=== PATIENT | female | born 1990 | race African-American/Black ===

== ENCOUNTER 2016-04-26 12:39 | Emergency (ER) | payer OTHER ==
[2016-04-26 12:56] VITALS: BP 136/68
[2016-04-26] MEDS ORDERED: IBUPROFEN 600 MG TABLET PO ONE (13:08)
[2016-04-26] MEDS ORDERED: IBUPROFEN 600 MG TABLET ONE (13:13)
--- NOTE | 2016-04-26 13:14 | ERNOTE ---
Medical Problem HPI - Narrative Date of Service: 04/26/16 - General Chief Complaint: Flu Symptoms Time Seen by Provider: 04/26/16 13:07 Source: patient Exam Limitations: no limitations - Immun/Allergies/Home Medications Immunizations: IMMUNIZATION HX Immunizations Up to Date Yes History of Influenza Vaccine Yes Hx Pneumococcal Vaccination No Allergies/Adverse Reactions: Allergies No Known Allergies Allergy (Verified 04/26/16 12:57) Home Medications: HOME MEDICATIONS Albuterol Sulfate 2.5 mg IH Q6H #50 vial.neb 04/26/16 [Last Taken Unknown] Risperidone [Risperdal] 4 mg PO HS 04/26/16 [Last Taken Unknown] Sulfamethoxazole/Trimethoprim [Bactrim Ds] 1 tab PO BID #14 tab 04/26/16 [Last Taken Unknown] predniSONE [Prednisone] 2 tab PO DAILY #10 tab 04/26/16 [Last Taken Unknown] - History of Present History Narrative: 25 yo, F, reported to ED with reported flu-like symptoms. States started with mild cough and nasal drainage 2 days ago, but yesterday developed fever, body aches, chills. She works at the [employer] and has had exposure to Influenza. She did receive her flu shot this season. She has also noted some urinary frequency over the past 2 days as well. Date (Duration): 04/24/16 Timing: getting worse Modifying Factors - (Improves): Present: rest Modifying Factors - (Worsens): Present: other - none Review of Systems - Review of Systems Constitutional: Present: fever, chills, fatigue, malaise, other - body aches ENT: Present: nasal drainage. Absent: ear pain, sore throat Respiratory: Present: shortness of breath - with coughing, cough - dry barky. Absent: wheezing Cardiology: Absent: chest pain, palpitations, syncope Gastrointestinal/Abdominal: Present: nausea. Absent: vomiting, diarrhea, constipation, abdominal pain Genitourinary: Present: frequency. Absent: dysuria, hematuria Musculoskeletal: Present: back pain - mid back Skin: Absent: rash - Patient's Past Medical History Patient History - Medical: Bipolar Patient History - Cardiac/Respiratory: Asthma Patient History - Cancer: No Hx of Cancer Patient History - Surgical Procedures: , Tubal Ligation, Other - Social History Living Situations: home Smoking Status: Current every day smoker Have you smoked in the past 12 months: Yes Alcohol Use: occasionally Drug Use: none Physical Exam - Physical Exam General Appearance: Present: wd/wn, alert, no apparent distress Eye Exam: Sclera injection: bilateral - absent, Photophobia: bilateral - absent Ears, Nose, Throat: Present: pharyngeal erythema - mild, other - mild hyperemia and inflamation of nasal passages Neck: Present: normal inspection, full range of motion Respiratory: Present: no respiratory distress, no accessory muscle use, wheezing - moderate scattered wheezing. Absent: rales, rhonchi Cardiovascular/Chest: Present: regular rate, rhythm, no murmur Gastrointestinal/Abdominal: Present: normal bowel sounds, nontender, soft Back Exam: Present: no CVA tenderness Skin Exam: Present: normal color, warm/dry ED Progress - Date and Time Seen: Date and Time: 04/26/16 15:00 Reports feeling improved after Ibuprofen and Albuterol treatment. Mild scattered wheezing post treatment. No rales, no rhonchi. Will start tx for UTI and have her remain off work for through Saturday, due to flu-like symptoms. - Results and Orders Patient's Lab Results:: I have reviewed the patient's lab results. - Vital Signs Patient's Vital Signs:: I have reviewed the patient's vital signs. Vital Signs: Vital Signs 04/26/16 12:52 Temperature 38.7 C H Pulse Rate 98 Respiratory 18 Rate Blood Pressure 136/68 O2 Sat by Pulse 97 Oximetry - Progress/Reassessment Chief Complaint: Flu Symptoms Departure - Departure Clinical Impression: Viral syndrome Asthma with acute exacerbation Qualifiers: Asthma severity: mild intermittent Qualified Code(s): J45.21 - Mild intermittent asthma with (acute) exacerbation UTI (urinary tract infection) Qualifiers: Urinary tract infection type: acute cystitis Hematuria presence: without hematuria Qualified Code(s): N30.00 - Acute cystitis without hematuria Disposition: Home self-care Condition: Fair Instructions: Urinary Tract Infection, Adult, [id number], Asthma, Adult, Easy -to-Read Additional Instructions: Keep head of bed elevated to help with cough and congestion Start antibiotic (Bactrim) and Prednisone today May use Tylenol or Motrin, as directed for fever and body aches Return to ER if you develop any difficulty breathing, if symptoms worsen or you are vomiting and unable to tolerate oral fluids or antibiotics Schedule follow up appointment with your doctor for re-evaluation. Referrals: Cas Espinosa MD [Primary Care Provider] - Prescriptions: Albuterol Sulfate 2.5 mg IH Q6H #50 vial.neb Sulfamethoxazole/Trimethoprim [Bactrim Ds] 1 tab PO BID #14 tab predniSONE [Prednisone] 2 tab PO DAILY #10 tab
[2016-04-26 13:41] LABS: Urine Bilirubin Negative (NEGATIVE); Urine Ketone Negative (NEGATIVE); Urine Nitrite Negative (NEGATIVE); Urine Protein Negative (NEGATIVE); Urine Specific Gravity 1.025 SP.GR. (1.005-1.010); Urine Urobilinogen Normal (NORMAL); Urine pH 7.5 pH (5.0-7.0)
[2016-04-26] MEDS ORDERED: ALBUTEROL SULFATE 2.5 MG/0.5 ML VIAL.NEB IH ONE ×2 (13:51→14:04)
[2016-04-26 13:57] LABS: Urine Appearance Clear; Urine Bacteria TRACE; Urine Blood 10 /ul (NEGATIVE); Urine Color Yellow; Urine RBC 0-5 /hpf (0-5); Urine WBC None Seen /hpf (0-5)
[2016-04-26 13:58] LABS: Urine Mucus Moderate - 2+
== END 2016-04-26 15:20 | disposition home or self-care (01) ==
LOC: ER 12:39
DX: B34.9 Viral infection, unspecified (principal); J45.21 Mild intermittent asthma with (acute) exacerbation; N30.00 Acute cystitis without hematuria; F17.210 Nicotine dependence, cigarettes, uncomplicated